=== PATIENT | female | born 1945 | race African-American/Black ===

== ENCOUNTER → 2020-01-01 | Outpatient (CLI) | payer MEDICARE, OTHER ==
[~2020-01-01] MED LIST: ACYCLOVIR; HYDRALAZINE; NEXIUM
== END | disposition home or self-care (01) ==
LOC: LAB 12-31 08:20
PROVIDERS: ATTEND Internal Medicine
DX: Z11.59 Encounter for screening for other viral diseases (principal)
CPT/HCPCS: C9803; U0003

== ENCOUNTER → 2020-01-03 | Day surgery (SDC) | payer MEDICARE, OTHER ==
[~2020-01-03] VITALS: Ht 154.9 cm; Wt 75.3 kg
[~2020-01-03] MED LIST changes: +IOHEXOL-300 50 ML BOTTLE IV ONE; +LIDOCAINE HCL 1% 20ML VIAL (Pyxis) INJ ONE; +ROPIVACAINE HCL 10MG/ML 20 ML VIAL EPI ONE; +SODIUM BICARBONATE 4% (2.4MEQ) 5ML VIAL IV ONE; +TRIAMCINOLONE ACETONIDE 40MG/ML 1ML VIAL IM ONE
== END | disposition home or self-care (01) ==
LOC: RAD 12:54
PROVIDERS: ATTEND Internal Medicine
DX: M16.12 Unilateral primary osteoarthritis, left hip (principal); Z79.899 Other long term (current) drug therapy
CPT/HCPCS: 20610; 77002; J2795; J3301; J3490; Q9967; 20611